=== PATIENT | female | born 1950 | race Caucasian/White ===

== ENCOUNTER 2017-02-02 08:30 | Emergency (ER) | payer OTHER ==
[~2017-02-02] VITALS: Ht 167.6 cm; Wt 93.0 kg
[2017-02-02 08:46] VITALS: BP 176/88; PULSE 55; RESP 18; TEMP 97.8; O2SAT 97
--- NOTE | 2017-02-02 09:30 | PD ---
HPI Chief Complaint: House Principal Problem/Complaint Time Seen by Provider: 08:52 Travel History International Travel<30 days: No Contact w/Intl Traveler<30days: No Traveled to known affect area: No History of Present Illness HPI 66-year-old female presents with every time she coughs she feels like her uterus is coming out since this weekend. She states she's never had this before. She denies any difficulty urinating, pain, fever, vomiting or any other concurrent complaints. Duration is couple of days. Severity is intermittent. PFSH Past Medical History Medical History: Denies Significant Hx Tetanus Vaccination: < 5 Years Influenza Vaccination: Yes ?: Not Miscarriage: 2 Past Surgical History Surgical History: No Previous Surgery Social History Alcohol Use: Yes (OCC) Tobacco Use: No Substance Use: No Allergies-Medications (Allergen,Severity, Reaction): Uncoded Allergies: STEROIDS (Allergy, Severe, Anemia, 02/02/17) LIVER PROBLEMS Reported Meds & Prescriptions Reported Meds & Active Scripts Active No Active Prescriptions or Reported Medications Review of Systems Except as stated in HPI: all other systems reviewed are Neg Physical Exam Narrative GENERAL: Well-nourished, well-developed patient. SKIN: Warm and dry. HEAD: Normocephalic and atraumatic. EYES: No injection or drainage. ENT: No nasal drainage noted. NECK: Supple, trachea midline. CARDIOVASCULAR: Regular rate and rhythm RESPIRATORY: No increased effort. No accessory muscle use. GASTROINTESTINAL: Abdomen soft, non-tender, nondistended. GENITOURINARY after permission with industrial relations officer: Normal external genitalia without lesions or erythema. Vaginal vault with uterine prolapse noted but not extending outside of vaginal vault and noted on speculum exam, cervical os was closed without drainage. NEUROLOGICAL: Awake and alert. Motor and sensory grossly within normal limits. Normal speech. Data Data Last Documented VS Vital Signs Date Time Temp Pulse Resp B/P (MAP) Pulse Ox O2 Delivery O2 Flow Rate FiO2 02/02/17 08:46 97.8 55 18 176/88 (117) 97 Orders Orders Ed Discharge Order (02/02/17 09:28) [facility] Medical Decision Making Medical Screen Exam Complete: Yes Emergency Medical Condition: Yes Medical Record Reviewed: Yes (past history confirmed) Differential Diagnosis Uterine prolapse, urinary incontinence, wellness check Narrative Course On pelvic exam uterine prolapse is confirmed. Discussed with prime broker payroll professional who recommends outpatient follow-up without further testing here. Patient updated and agrees to this plan. Physician Communication Physician Communication [phone] covering physician states no additional testing needed here and can go Diagnosis Primary Impression: Uterine prolapse Referrals: Soliciting Freight Agent call for appointment Patient Instructions: General Instructions Additional Instructions: Return with any difficulty urinating, worsening pain, fever or other concerns Med/Other Pt SpecificInfo: No Change to Meds Scripts No Active Prescriptions or Reported Meds Disposition: 01 DISCHARGE HOME Condition: Stable Laura Lazo MD Feb 02, 2017 09:30
== END 2017-02-02 09:38 | disposition home or self-care (01) ==
LOC: PHED 08:30
DX: N81.4 Uterovaginal prolapse, unspecified (principal)
CPT/HCPCS: 99282

== ENCOUNTER → 2017-05-07 | Outpatient (CLI) | payer MEDICARE ==
[~2017-05-07] MED LIST: ZOFR4TAB PO
--- NOTE | 2017-05-07 13:39 | RADRPT ---
EXAM DATE/TIME: 05/07/2017 13:24 [facility] COMPARISON: No previous studies available for comparison. INDICATIONS : Evaluate for pneumonia, pneumothorax, and communicable diseases. Pre-op hysterectomy. Patient states no chest complaints. MEDICAL HISTORY : None. SURGICAL HISTORY : None. ENCOUNTER: Initial ACUITY: 1 day PAIN SCORE: 0/10 LOCATION: Bilateral chest FINDINGS: PA and lateral views of the chest demonstrate the lungs to be symmetrically aerated without evidence of mass, infiltrate or effusion. The cardiomediastinal contours are unremarkable. Osseous structure s are intact. CONCLUSION: No acute disease. Amando Li MD FACR on May 07, 2017 at 13:37 Board Certified Radiologist. This report was verified electronically.
[2017-05-07 14:04] LABS: HEMATOCRIT 40.9 % (35.0-46.0); HEMOGLOBIN 13.4 GM/DL (11.6-15.3); MEAN CELL VOLUME 83.1 FL (80.0-100.0); MEAN CORPUSCULAR HEMOGLOBIN 27.2 PG (27.0-34.0); MEAN CORPUSCULAR HGB CONC 32.7 % (32.0-36.0); MEAN PLATELET VOLUME 8.4 FL (7.0-11.0); PLATELET COUNT 220 TH/MM3 (150-450); RED BLOOD COUNT 4.92 MIL/MM3 (4.00-5.30); RED CELL DISTRIBUTION WIDTH 14.7 % (11.6-17.2); WHITE BLOOD COUNT 5.4 TH/MM3 (4.0-11.0)
[2017-05-07 14:05] LABS: BACTERIA, URINE RARE /hpf; BILIRUBIN, URINE NEG (NEG); BLOOD, URINE TRACE (NEG); GLUCOSE,URINE NEG (NEG); KETONE, URINE NEG (NEG); NITRITE,URINE NEG (NEG); SQUAMOUS EPITHELIAL CELL URINE 1 /hpf (0-5); URINE COLOR LIGHT-YELLOW (YELLW/STRAW); URINE LEUKOCYTE ESTERASE MOD (NEG)
[2017-05-07 14:34] LABS: ALBUMIN 3.7 GM/DL (3.4-5.0); AST (GOT) 28 U/L (15-37); BICARBONATE 27.3 MEQ/L (21.0-32.0); BLOOD UREA NITROGEN 18 MG/DL (7-18); CALCIUM 8.9 MG/DL (8.5-10.1); CHLORIDE 107 MEQ/L (98-107); CREATININE 0.67 MG/DL (0.50-1.00); GLOMERULAR FILTRATION RATE 88 ML/MIN (>89); GLUCOSE,FASTING 73 MG/DL (74-99); SODIUM (NA) 141 MEQ/L (136-145)
[2017-05-07 14:39] LABS: ALKALINE PHOSPHATASE 88 U/L (45-117); ALT (GPT) 45 U/L (10-53); TOTAL BILIRUBIN ADULT 0.3 MG/DL (0.2-1.0); TOTAL PROTEIN 7.3 GM/DL (6.4-8.2)
== END ==
LOC: CPRE 12:15
PROVIDERS: ATTEND Obstetrics & Gynecology
DX: Z01.812 Encounter for preprocedural laboratory examination (principal); Z01.818 Encounter for other preprocedural examination; N81.10 Cystocele, unspecified; N81.6 Rectocele
CPT/HCPCS: 36415; 71046; 80053; 81001; 85027

== ENCOUNTER 2017-05-12 09:12 | Inpatient (IN) | payer MEDICARE ==
[~2017-05-12] VITALS: Ht 167.6 cm; Wt 94.6 kg
[2017-05-12] MEDS ORDERED: POVIDONE IODINE 5% (ANTISEPSIS KIT) 4 APPLICATIONS EACH NARE PRN (10:00)
[2017-05-12] MEDS ORDERED: METOPROLOL TARTRATE 25 MG TAB PO PRN (10:00)
[2017-05-12] MEDS ORDERED: CHLORHEXIDINE GLUCONATE 2 % 1 PACK (2 CLOTHS) TOPICAL PRN (10:00)
[2017-05-12] MEDS ORDERED: LACTATED RINGER'S 1000 ML IV PRN (10:00)
[2017-05-12] MEDS ORDERED: SODIUM CHLORID 0.9% 500 ML IV PRN (10:00)
[2017-05-12] MEDS ORDERED: ESTROGENS CONJUGATED VAG CREA 15 APPL/30 GM TUBE ONE (11:41)
[2017-05-12] MEDS ORDERED: hydrALAZINE HCL 20 MG/ML VIAL IV ONE (12:00)
[2017-05-12] MEDS ORDERED: ONDANSETRON HCL 4 MG/2 ML VIAL IV ONE (12:00)
[2017-05-12] MEDS ORDERED: NEOSTIGMINE 5 MG/5 ML SYRINGE IV PUSH ONE (12:00)
[2017-05-12] MEDS ORDERED: GLYCOPYRROLATE 1 MG/5 ML SYRINGE IV PUSH ONE (12:00)
[2017-05-12] MEDS ORDERED: ROCURONIUM INJ 50 MG/5 ML SYRINGE IV PUSH ONE (12:00)
[2017-05-12] MEDS ORDERED: PROPOFOL 200 MG/20 ML AMP IV ONE (12:00)
[2017-05-12] MEDS ORDERED: LIDOCAINE HCL 1% PF 5 ML SYRINGE OTHER ONE (12:00)
[2017-05-12] MEDS ORDERED: ceFAZolin 2 GM PREMIX 50 ML ONE (12:31)
[2017-05-12] MEDS ORDERED: ACETAMINOPHEN 1000 MG/100 ML 100 ML IV ONE (12:46)
[2017-05-12] MEDS ORDERED: DO NOT ADM ANY ANTICOAGULANT DRUGS PRN (15:12)
[2017-05-12] MEDS ORDERED: IBUPROFEN 600 MG TAB PO PRN (15:15)
[2017-05-12] MEDS ORDERED: ZOLPIDEM TARTRATE 5 MG TAB PO PRN (15:15)
[2017-05-12] MEDS ORDERED: HYDROmorphone HCL PF 2 MG/ML VIAL IV PUSH PRN (15:15)
[2017-05-12] MEDS ORDERED: diphenhydrAMINE HCL 25 MG CAP PO PRN (15:15)
[2017-05-12] MEDS ORDERED: oxyCODONE/ACETAMINOPHEN 5 MG/325 MG TAB PO PRN (15:15)
[2017-05-12] MEDS ORDERED: SODIUM CHLORIDE 0.9% FLUSH 10 ML FLUSH IV FLUSH PRN (15:15)
[2017-05-12] MEDS ORDERED: MORPHINE SULFATE 4 MG/ML INJ ONE (15:25)
[2017-05-12] MEDS ORDERED: *morphine SULFATE 4 MG/ML PERIprocedure ONLY ONE (15:46)
[2017-05-12] MEDS ORDERED: KETOROLAC TROMETHAMINE 30 MG/ML (IVP) VIAL ONE (15:52)
[2017-05-12] MEDS ORDERED: KETOROLAC TROMETHAMINE 30 MG/ML (IVP) VIAL IV PUSH ONE (16:30)
[2017-05-12 17:30] VITALS: BP 123/69; PULSE 59; RESP 14; TEMP 97.4; O2SAT 98
[2017-05-12] MEDS ORDERED: MORPHINE SULFATE 4 MG/ML INJ IV PUSH PRN (17:30)
[2017-05-12] MEDS: DOCUSATE SODIUM 100 MG CAP PO SCH (17:40)
[2017-05-12 20:00] VITALS: BP 139/84; PULSE 91; RESP 20; TEMP 97.5; O2SAT 96
[2017-05-12] MEDS ORDERED: ONDANSETRON HCL 4 MG/2 ML VIAL IV PUSH PRN (20:00)
[2017-05-12] MEDS: LACTATED RINGER'S 1000 ML INJ 1,000 ML IV SCH (20:58)
[2017-05-12] MEDS: ACETAMINOPHEN 1000 MG/100 ML 100 ML IV SCH (20:58)
[2017-05-12] MEDS: SODIUM CHLORIDE 0.9% FLUSH 10 ML FLUSH IV FLUSH SCH (20:59)
[2017-05-12] MEDS ORDERED: ONDANSETRON INJ 8 MG in DEXTROSE 5% IN WATER INJ 50 ML IV PRN ×2 (22:00)
[2017-05-13] VITALS: BP 139/70; PULSE 87; RESP 16; TEMP 97.4; O2SAT 95
[2017-05-13] MEDS: KETOROLAC TROMETHAMINE 30 MG/ML (IVP) VIAL IV PUSH SCH ×4 (00:16→20:45)
[2017-05-13 04:00] VITALS: BP 141/75; PULSE 62; RESP 16; TEMP 97.7; O2SAT 96
[2017-05-13] MEDS: ACETAMINOPHEN 1000 MG/100 ML 100 ML IV SCH (05:21)
[2017-05-13] MEDS: DOCUSATE SODIUM 100 MG CAP PO SCH ×2 (05:21→18:05)
[2017-05-13] MEDS: LACTATED RINGER'S 1000 ML INJ 1,000 ML IV SCH ×2 (05:22→19:40)
[2017-05-13 05:57] LABS: AUTOMATED NEUTROPHIL # 6.5 TH/MM3 (1.8-7.7); BASOPHIL % 0.1 % (0.0-2.0); EOSINOPHIL % 0.1 % (0.0-4.0); HEMOGLOBIN 11.5 GM/DL (11.6-15.3); LYMPH % 20.2 % (9.0-44.0); LYMPHOCYTE # 1.9 TH/MM3 (1.0-4.8); MEAN CELL VOLUME 82.7 FL (80.0-100.0); MEAN CORPUSCULAR HEMOGLOBIN 27.2 PG (27.0-34.0); MEAN CORPUSCULAR HGB CONC 32.8 % (32.0-36.0); MEAN PLATELET VOLUME 8.2 FL (7.0-11.0); MONO % 9.1 % (0.0-8.0); MONOCYTE # 0.8 TH/MM3 (0-0.9); NEUT % 70.5 % (16.0-70.0); PLATELET COUNT 196 TH/MM3 (150-450); RED BLOOD COUNT 4.23 MIL/MM3 (4.00-5.30); RED CELL DISTRIBUTION WIDTH 14.6 % (11.6-17.2); WHITE BLOOD COUNT 9.2 TH/MM3 (4.0-11.0)
[2017-05-13 06:22] LABS: BICARBONATE 26.8 MEQ/L (21.0-32.0); CALCIUM 8.2 MG/DL (8.5-10.1); CREATININE 0.64 MG/DL (0.50-1.00)
[2017-05-13 08:00] VITALS: BP 140/69; PULSE 80; RESP 20; TEMP 97.9; O2SAT 98
--- NOTE | 2017-05-13 08:14 | HHI.PR ---
Subjective Remarks Doing well, pain is well controlled, eating well. Had a hard time with the Dilaudid but has percocet ordered for pain at home Objective Vital Signs Vital Signs Date Time Temp Pulse Resp B/P (MAP) Pulse Ox O2 Delivery O2 Flow Rate FiO2 05/13/17 00:00 97.4 87 16 139/70 (93) 95 05/12/17 20:00 97.5 91 20 139/84 (102) 96 05/12/17 20:00 97.5 91 20 139/84 (102) 96 05/12/17 17:30 97.4 59 14 123/69 (87) 98 05/12/17 16:30 98.0 60 15 124/70 (88) 98 Nasal Cannula 2 05/12/17 16:15 53 16 117/59 (78) 98 Nasal Cannula 2 05/12/17 16:00 54 16 143/70 (94) 98 Nasal Cannula 2 05/12/17 15:45 52 20 113/67 (82) 100 Nasal Cannula 2 05/12/17 15:30 54 20 117/67 (84) 100 Nasal Cannula 2 05/12/17 15:15 97.3 65 15 139/78 (98) 97 Nasal Cannula 2 05/12/17 10:00 98.3 63 20 140/85 (103) 99 I/O 05/12/17 05/12/17 05/12/17 05/13/17 05/13/17 05/13/17 07:00 15:00 23:00 07:00 15:00 23:00 Intake Total 2200 ml 525 ml Output Total 600 ml 500 ml 500 ml Balance -600 ml 1700 ml 25 ml Intake Oral 525 ml IV Total 200 ml Other 2000 ml Output Urine Total 300 ml 500 ml 500 ml Estimated Blood Loss 300 ml Result Diagram: 05/13/17 0446 05/13/17 0446 Objective Remarks Chest is clear, regular rate and rhythm. Abdomen is soft and non-distended. Incision is clean and dry. Ext no CCE. A/P Assessment and Plan Post Op Day 1 Doing well Home tomorrow and return to office in two weeks. Real Coyne MD May 13, 2017 08:14
[2017-05-13 12:00] VITALS: BP 180/81; PULSE 62; RESP 16; TEMP 98.5; O2SAT 98
[2017-05-13] MEDS: oxyCODONE/ACETAMINOPHEN 5 MG/325 MG TAB PO PRN ×3 (14:16→23:48)
--- NOTE | 2017-05-13 15:33 | MP ---
cc: Real COYNE DATE OF SURGERY: 05/12/2017 PREOPERATIVE DIAGNOSIS: 1. Cystocele. 2. Rectocele. 3. Total uterine prolapse. POSTOPERATIVE DIAGNOSIS: 1. Cystocele. 2. Rectocele. 3. Total uterine prolapse. PROCEDURE: Total vaginal hysterectomy. Anterior and posterior repair. ANESTHESIA: General. SURGEON: Real Coyne MD. FINDINGS: Examination under anesthesia the vagina was clean. The cervix was small, the vagina was atrophic. The uterus was small, freely mobile, did not feel like it was adhesed to the anterior abdominal wall. The adnexa were negative for masses. We were unable to get the tubes and ovaries as they were very high up and I did not think we needed to do a laparoscopic exam to get those. There was a huge cystocele and a moderate rectocele, and a moderate enterocele, all repaired. COMPLICATIONS: None. COUNTS: Correct. ESTIMATED BLOOD LOSS: 300 cc. FLUIDS: Crystalloid. DISPOSITION: The patient tolerated the procedure well and went to the Recovery Room in good condition. PROCEDURE IN DETAIL: The patient was taken to the operating room, identified by name band and verbally, given general anesthetic. She was then placed in the dorsal lithotomy position and prepared for vaginal surgery. A circumferential injection of saline was used to dissect tissue planes around the cervix. The cervix was then circumferentially incised with the Bovie cautery. It was taken down posteriorly until the cul-de-sac was entered under direct vision without difficulty. Once this had been accomplished, the uterosacral ligaments were taken with clamps and 0 Vicryl pop-offs. The bladder was then dissected off anteriorly and several bites of the cardinal ligament were taken until the level of the uterine vessels were reached with Heaneys and 0 Vicryl pop-offs. Once this had been accomplished, we got in anteriorly; the vessels were taken with clamp and 0 Vicryl pop-offs. The broad ligament was then continued to be taken up with Heaneys and 0 Vicryl pop-offs until the level of fallopian tubes was reached. This was taken with a Matilda free tie and stick tie bilaterally. The left ovary was present; it was small and atrophic with numerous adhesions. These were taken down without difficulty. The pedicle was taken under direct vision and the clamp slipped a little bit and there was some bleeding which necessitated placing the patient in deep Trendelenburg, finding the pedicle and isolating it and clamping it a little further back. Once this had been accomplished, it was doubly clamped and the ovary and tube removed. It was taken with a free tie and stick tie. Hemostasis was excellent. All pedicles were dry. Anterior repair was started at the apex of the vagina anteriorly and coming down undermining the mucosa and the mucosa was taken off the endopelvic fascia. The Daily was inserted; the endopelvic fascia was plicated using 2-0 Vicryl pop-offs in an interrupted fashion with excellent results at the level of the Daily which marked the trigone of the bladder. Once this had been accomplished, excess mucosa was trimmed and then the cuff was closed with 2-0 Vicryl in an interrupted fashion. The mucosa was then closed with 2-0 Vicryl in an interrupted fashion. Attention was turned to the posterior aspect. A semi-lunar incision was made in the perineum. The perineum was taken down and a perineorrhaphy was done. The mucosa was then undermined away from the endopelvic fascia almost to the apex of the vagina posteriorly. Once this had been accomplished, the mucosa was taken down off the endopelvic fascia and the endopelvic fascia was plicated without difficulty with 2-0 Vicryl pop-offs. The excess mucosa was trimmed and the mucosa was reapproximated with 2-0 Vicryl. The vagina was irrigated and the results were excellent. There was good support. The vagina was then packed with a 2 inch vaginal packing. She was taken to the recovery room in satisfactory condition. R. MD JESSIE Joaquin/PEGGY /3:07 PM /2:15 PM
[2017-05-13 16:00] VITALS: BP 151/71; PULSE 65; RESP 18; TEMP 97.9; O2SAT 98
[2017-05-13 19:40] VITALS: BP 142/77; PULSE 73; RESP 20; TEMP 98.3
[2017-05-13] MEDS: SODIUM CHLORIDE 0.9% FLUSH 10 ML FLUSH IV FLUSH SCH (19:40)
[2017-05-14] VITALS: BP 153/75; PULSE 77; RESP 18; TEMP 98.5; O2SAT 97
[2017-05-14] MEDS: DOCUSATE SODIUM 100 MG CAP PO SCH (03:05)
[2017-05-14] MEDS: LACTATED RINGER'S 1000 ML INJ 1,000 ML IV SCH (03:05)
[2017-05-14] MEDS: KETOROLAC TROMETHAMINE 30 MG/ML (IVP) VIAL IV PUSH SCH ×3 (03:45→20:00)
[2017-05-14 04:00] VITALS: BP 145/70; PULSE 64; RESP 18; TEMP 98; O2SAT 97
[2017-05-14 08:30] VITALS: BP 141/85; PULSE 65; RESP 16; TEMP 98; O2SAT 96
[2017-05-14] MEDS: oxyCODONE/ACETAMINOPHEN 5 MG/325 MG TAB PO PRN (10:12)
--- NOTE | 2017-05-14 11:29 | HHI.PR ---
Subjective Remarks Doing well, pain is well controlled, eating well. Objective Vital Signs Vital Signs Date Time Temp Pulse Resp B/P (MAP) Pulse Ox O2 Delivery O2 Flow Rate FiO2 05/14/17 04:00 98.0 64 18 145/70 (95) 97 05/14/17 00:00 98.5 77 18 153/75 (101) 97 05/13/17 19:40 98.3 73 20 142/77 (98) 05/13/17 16:00 97.9 65 18 151/71 (97) 98 05/13/17 12:00 98.5 62 16 180/81 (114) 98 I/O 05/13/17 05/13/17 05/13/17 05/14/17 05/14/17 05/14/17 07:00 15:00 23:00 07:00 15:00 23:00 Intake Total 775 ml Output Total 1500 ml 1100 ml 800 ml 1750 ml 400 ml Balance -725 ml -1100 ml -800 ml -1750 ml -400 ml Intake Oral 775 ml Output Urine Total 1500 ml 1100 ml 800 ml 1750 ml 400 ml # Sanitary Pads 1 Pads Result Diagram: 05/13/17 0446 05/13/17 0446 Objective Remarks Chest is clear anterior and upper posterior with crackles to posterior bilateral lower lobs heart regular rate and rhythm. Abdomen is soft and non-distended, +bs Ext no CCE. A/P Assessment and Plan Post Op Day 2 Doing well pain well managed with oral pain mediations encouraged the incentive spirometry use at home Home today and return to office in two weeks. pt's daughter will be helping her Dixie Zheng May 14, 2017 11:29
[2017-05-14] MEDS ORDERED: ONDANSETRON ODT 4 MG TAB PO ONE (12:30)
[2017-05-14 15:34] VITALS: BP 136/71; PULSE 71; RESP 18; TEMP 98.3
[2017-05-14] MEDS: ONDANSETRON ODT 4 MG TAB PO PRN (18:43)
[2017-05-14 19:30] VITALS: BP 167/86; PULSE 88; RESP 18; TEMP 98.5
[2017-05-15 01:00] VITALS: BP 142/73; PULSE 66; RESP 20; TEMP 98.5
[2017-05-15] MEDS: LACTATED RINGER'S 1000 ML INJ 1,000 ML IV SCH (04:28)
[2017-05-15] MEDS: SODIUM CHLORIDE 0.9% FLUSH 10 ML FLUSH IV FLUSH SCH (04:28)
[2017-05-15] MEDS: DOCUSATE SODIUM 100 MG CAP PO SCH (05:33)
[2017-05-15] MEDS: ONDANSETRON ODT 4 MG TAB PO PRN (05:36)
[2017-05-15] MEDS: KETOROLAC TROMETHAMINE 30 MG/ML (IVP) VIAL IV PUSH SCH ×2 (05:37→08:00)
[2017-05-15 06:30] VITALS: BP 136/73; PULSE 64; RESP 20; TEMP 98
[2017-05-15] MEDS ORDERED: ZOFR4TAB PO (07:53)
--- NOTE | 2017-05-15 07:55 | HHI.PR ---
Subjective Remarks Doing well, pain is well controlled, still having some urinary frequency and lower abd pressure, but feels ready for d/c home, eating well, having some nausea but no emesis Objective Vital Signs Vital Signs Date Time Temp Pulse Resp B/P (MAP) Pulse Ox O2 Delivery O2 Flow Rate FiO2 05/15/17 06:30 98.0 64 20 136/73 (94) 05/15/17 01:00 98.5 66 20 142/73 (96) 05/14/17 19:30 98.5 88 18 167/86 (113) 05/14/17 15:34 98.3 71 18 136/71 (92) 05/14/17 08:30 98.0 65 16 141/85 (103) 96 I/O 05/14/17 05/14/17 05/14/17 05/15/17 05/15/17 05/15/17 07:00 15:00 23:00 07:00 15:00 23:00 Output Total 1750 ml 980 ml 100 ml 600 ml Balance -1750 ml -980 ml -100 ml -600 ml Output Urine Total 1750 ml 980 ml 100 ml 600 ml Bladder Scan Volume Amount 51 ml 54 ml 166 ml Result Diagram: 05/13/17 0446 05/13/17 0446 Objective Remarks Chest is clear anterior and upper posterior with crackles to posterior bilateral lower lobs heart regular rate and rhythm. Abdomen is soft and non-distended, +bs Ext no CCE. A/P Assessment and Plan Post Op Day 3 Doing well, d/c home today, zofran for rx. Home today and return to office in two weeks. pt's daughter will be helping her TyDuarte oswald MD May 15, 2017 07:54
== END 2017-05-15 10:33 | disposition home or self-care (01) | DRG 743 ==
LOC: HSDI 09:12 → H1EA 16:51
PROVIDERS: ADMIT Obstetrics & Gynecology; ATTEND Obstetrics & Gynecology
PROC: 0JQC0ZZ Repair Pelvic Region Subcutaneous Tissue and Fascia, Open Approach (ICD-10-PCS; 2017-05-12)
PROC: 0UT97ZZ Resection of Uterus, Via Natural or Artificial Opening (ICD-10-PCS; principal; 2017-05-12 12:06)
DX: N81.3 Complete uterovaginal prolapse (principal)
CPT/HCPCS: 80048; 85025; 86850; 86900; 86901; 88302; 88307; 94150; J0131; J0360; J0690; J1170; J1885; J2270; J2405; J2710; J3010; J7120